=== PATIENT | female | born 1990 | race Caucasian/White ===

== ENCOUNTER 2021-02-03 05:42 | Emergency (ER) | payer OTHER ==
[~2021-02-03 05:42] MED LIST: KLONOPIN0.5 MG PO; LAMICTAL100 MG PO; LITHIUM300 MG PO; SEROQUEL 100MG100 MG PO; TRAMADOL HCL50 MG PO; ZANTAC150 MG PO; ZOFRAN4 MG PO
[2021-02-03] MEDS ORDERED: BACTRIM DS TAB1 EACH PO (07:42)
== END 2021-02-03 08:33 | disposition home or self-care (01) ==
LOC: FER 05:42
DX: K61.1 Rectal abscess (principal)
CPT/HCPCS: 87070; 87077; 87186; 87205